=== PATIENT | female | born 1945 | race Caucasian/White ===

== ENCOUNTER 2020-03-17 11:27 | Emergency (ER) | payer MEDICARE, BC ==
--- NOTE | 2020-03-17 12:22 | CR ---
Pelvis and left hip: AP view of the pelvis was obtained as well as AP and frog-leg lateral views left hip. Joint spaces within both hips are maintained. Sacroiliac joints are normal. Degenerative change is noted within the visualized lower lumbar spine. No acute fracture or dislocation is seen. Impression: 1. Findings as noted above. 2. Nothing acute is appreciated on AP pelvis or on 2 view left hip exam. Diagnostic code #2 This report was dictated in MDT
--- NOTE | 2020-03-17 12:40 | EDM.PDOC ---
ED HPI GENERAL MEDICAL PROBLEM - General Chief Complaint: Trauma Stated Complaint: FALL (KNOCKED OVER BY A HORSE) Time Seen by Provider: 03/17/20 12:44 Source of Information: Reports: Patient, Family - History of Present Illness INITIAL COMMENTS - FREE TEXT/NARRATIVE: Patient is an unfortunate 74-year-old female who presents emergency department today with complaints of left hip pain. The patient reports she was in her normal state of health until last evening approximately 9 PM when she was standing next to a horse with a horse on her right side and the horse turned and knocked her over she fell onto her left side and has had pain and tenderness to her left hip ever since. Patient has a large hematoma to her left hip she complains of pain and tenderness to her left pelvis and she has ecchymosis to bilateral elbows she also has a small ecchymotic area to her left lower leg with proximal in the lateral aspect distal neurovascular is intact the leg is not shortened or rotated she is able to ambulate with some pain reports she did hit her head but did not suffer a loss of consciousness and is not taking any anticoagulant therapy at this time Left Hip Pain Score (Numeric/FACES): 10 - Related Data Allergies Allergy/AdvReac Type Severity Reaction Status Date / Time sulfamethoxazole Allergy Other Verified 08/30/18 14:02 [From Bactrim] trimethoprim [From Bactrim] Allergy Other Verified 08/30/18 14:02 Home Meds: Home Meds Chlorthalidone 12.5 mg PO DAILY 06/21/16 [History] Spironolactone [Aldactone] 25 mg PO DAILY 06/21/16 [History] Topiramate 25 mg PO DAILY 06/21/16 [History] busPIRone [Buspar] 10 mg PO BID 06/21/16 [History] Apixaban [Eliquis] 5 mg PO BID 08/21/18 [History] Ascorbic Acid [Vitamin C] 500 mg PO DAILY 08/30/18 [History] Calcium Carbonate [Calcium] 1,200 mg PO DAILY 08/30/18 [History] Cyanocobalamin (Vitamin B-12) [Vitamin B-12] 1,000 mcg PO DAILY 08/30/18 [History] Furosemide [Lasix] 40 mg PO DAILY PRN 08/30/18 [History] Levothyroxine [Synthroid] 88 mcg PO DAILY 08/30/18 [History] Metoprolol Tartrate 50 mg PO BID 08/30/18 [History] Multivitamin [Zoo Chews] 1 tab PO DAILY 08/30/18 [History] tiZANidine HCl [Zanaflex] 1 mg PO DAILY 08/30/18 [History] Acetaminophen/HYDROcodone [[place] 325-5 MG] 1 - 2 tab PO Q6H PRN #12 tablet 08/31/18 [Rx] Acetaminophen with Codeine [Tylenol with Codeine #3 Tablet] 1 each PO Q4H PRN #20 tablet 03/17/20 [Rx] Past Medical History HEENT History: Reports: Allergic Rhinitis, Impaired Vision Cardiovascular History: Reports: Blood Clots/VTE/DVT, CAD, High Cholesterol, Hypertension Other Cardiovascular History: edema, peripheral venous insufficiency Respiratory History: Reports: Other (See Below) Other Respiratory History: URI Gastrointestinal History: Reports: Diverticulosis, GERD Other Gastrointestinal History: elevated liver function tests, nausea Genitourinary History: Reports: None FLAKE DRIER History: Reports: Other (See Below) Other FLAKE DRIER History: fibrocystic breast Musculoskeletal History: Reports: Osteoarthritis, Other (See Below) Other Musculoskeletal History: wrist pain, myositis Neurological History: Reports: Headaches, Chronic, Migraines Psychiatric History: Reports: Anxiety Endocrine/Metabolic History: Reports: Hypothyroidism Hematologic History: Reports: Other (See Below) Other Hematologic History: hypokalemia Immunologic History: Reports: None Oncologic (Cancer) History: Reports: Breast Dermatologic History: Reports: Other (See Below) Other Dermatologic History: scalp hematoma, lumpectomy - Past Surgical History HEENT Surgical History: Reports: Cataract Surgery, Oral Surgery Cardiovascular Surgical History: Reports: Coronary Artery Stent, Other (See Below) Respiratory Surgical History: Reports: None GI Surgical History: Reports: Appendectomy, Colonoscopy, Lysis of Adhesions Female Surgical History: Reports: Hysterectomy, Oophorectomy, Other (See Below) Endocrine Surgical History: Reports: None Neurological Surgical History: Reports: None Oncologic Surgical History: Reports: Lumpectomy Social & Family History - Tobacco Use Smoking Status *Q: Never Smoker - Caffeine Use Caffeine Use: Reports: Coffee, Soda - Recreational Drug Use Recreational Drug Use: No - Living Situation & Occupation Living situation: Reports: , with Spouse, with Family (Granddaughter) Occupation: Retired Review of Systems - Review of Systems Review Of Systems: See Below Constitutional: Denies: Chills, Fever Musculoskeletal: Reports: Joint Pain Neurological: Reports: Difficulty Walking (Secondary to pain). Denies: Confusion, Dizziness, Headache, Change in Speech, Gait Disturbance ED EXAM, GENERAL - Physical Exam Exam: See Below Exam Limited By: No Limitations General Appearance: Alert, WD/WN, Mild Distress Nose: Normal Inspection, Normal Mucosa, No Blood Head: Atraumatic, Normocephalic Neck: Normal Inspection, Supple, Non-Tender, Full Range of Motion, Other (No cervical spine tenderness) Respiratory/Chest: No Respiratory Distress, Lungs Clear, Normal Breath Sounds, No Accessory Muscle Use, Chest Non-Tender Cardiovascular: Normal Peripheral Pulses, Regular Rate, Rhythm, No Edema, No Gallop, No JVD, No Murmur, No Rub GI/Abdominal: Normal Bowel Sounds, Soft, Non-Tender, No Organomegaly, No Distention, No Abnormal Bruit, No Mass Extremities: Other (Patient has a 6 x 6 cm area of hematoma to her left lateral hip, patient has moderate tenderness to her left pelvis, she also has 2 x 4 area of ecchymosis to the proximal left lower extremity lateral aspect distal neurovascular is intact, patient does have pain with ambulation but is able to ambulate leg is not shortened nor is it rotated patient has 3+ pedal edema to her right ankle, the patient reports this is normal lymphedema for her) Neurological: Alert, Oriented Skin Exam: Warm, Dry Course - Vital Signs Text/Narrative:: Head CT "impression: #1 mild senescent change. Other benign findings as noted above. #2 nothing acute is appreciated on noncontrast head CT exam." Last Recorded V/S: Last Vital Signs Temp 97.6 F 03/17/20 11:53 Pulse 56 L 03/17/20 11:53 Resp 20 03/17/20 11:53 BP 142/74 H 03/17/20 11:53 Pulse Ox 100 03/17/20 11:53 - Radiology Interpretation Free Text/Narrative:: AP pelvis interpreted by me left pubic symphysis fracture, otherwise NAD - Re-Assessments/Exams Free Text/Narrative Re-Assessment/Exam: 03/17/20 12:45 Of note, the care on this trauma patient was directed by Dr. Bull Departure - Departure Time of Disposition: 12:59 Disposition: Home, Self-Care 01 Clinical Impression: Pelvic fracture Qualifiers: Encounter type: initial encounter Pelvic bone location: pubis Sublocation of pubis: other portion of pubis Fracture type: closed Laterality: left Qualified Code(s): S32.592A - Other specified fracture of left pubis, initial encounter for closed fracture Contusion of left hip Qualifiers: Encounter type: initial encounter Qualified Code(s): S70.02XA - Contusion of left hip, initial encounter Head contusion Qualifiers: Encounter type: initial encounter Contusion of head detail: other part of head Qualified Code(s): S00.83XA - Contusion of other part of head, initial encounter Contusion of left leg Qualifiers: Encounter type: initial encounter Qualified Code(s): S80.12XA - Contusion of left lower leg, initial encounter - Discharge Information *PRESCRIPTION DRUG MONITORING PROGRAM REVIEWED*: Yes *COPY OF PRESCRIPTION DRUG MONITORING REPORT IN PATIENT MAXIMILIANO: No Prescriptions: Acetaminophen with Codeine [Tylenol with Codeine #3 Tablet] 1 each PO Q4H PRN #20 tablet PRN Reason: Pain Referrals: Janet Vu NP [Primary Care Provider] - Yogesh Young MD [Physician] - Forms: ED Department Discharge Additional Instructions: Home, rest, use your walker to assist with ambulation, return as needed for any worsening condition Sepsis Event Note (ED) - Evaluation Sepsis Screening Result: No Definite Risk - Focused Exam Vital Signs: Vital Signs Temp Pulse Resp BP Pulse Ox 03/17/20 11:53 97.6 F 56 L 20 142/74 H 100
--- NOTE | 2020-03-17 12:48 | CT ---
Head CT Technique: Multiple axial sections through the brain were obtained. Intravenous contrast was not utilized. Comparison: No prior intracranial imaging is available. Findings: Ventricles along with basal cisterns and sulci over the convexities are within normal limits for the patient's age. CSF structure is noted within the anterior right temporal region most likely due to small arachnoid cyst measuring 3.5 cm. Mild areas of diminished density are noted within the periventricular and subcortical white matter compatible with small vessel ischemic demyelination change. No other abnormal parenchymal densities are seen. No evidence of intracranial hemorrhage. No midline shift or mass-effect is seen. Visualized paranasal sinuses and mastoid sinuses show nothing acute. No acute calvarial finding is seen. Impression: 1. Mild senescent change. Other benign findings as noted above. 2. Nothing acute is appreciated on noncontrast head CT exam. Diagnostic code #2 This report was dictated in MDT
[2020-03-17 17:02] VITALS: BP 140/70; PULSE 62
== END 2020-03-17 13:43 | disposition home or self-care (01) ==
LOC: JD.ED 11:27
DX: S32.592A Other specified fracture of left pubis, initial encounter for closed fracture (principal); S00.83XA Contusion of other part of head, initial encounter; S70.02XA Contusion of left hip, initial encounter; S80.12XA Contusion of left lower leg, initial encounter; I10 Essential (primary) hypertension; E78.00 Pure hypercholesterolemia, unspecified; E03.9 Hypothyroidism, unspecified; F41.9 Anxiety disorder, unspecified; Z88.2 Allergy status to sulfonamides; Z88.1 Allergy status to other antibiotic agents; Z79.899 Other long term (current) drug therapy; V80.010A Animal-rider injured by fall from or being thrown from horse in noncollision accident, initial encounter
CPT/HCPCS: 70450; 70450-26; 73502-26-LT; 73502-LT; 99284-25

== ENCOUNTER 2023-07-07 09:39 | Day surgery (SDC) | payer MEDICARE, BC ==
[~2023-07-07 09:39] MED LIST: Lactated Ringers 1,000 ML IV SCH; Sodium Chloride 0.9% 10 ML Syringe FLUSH PRN; Sodium Chloride 0.9% 10 ML Syringe FLUSH SCH
[2023-07-07] MEDS ORDERED: fentaNYL 100 MCG/2 ML SDV ONE ×2 (10:23→10:49)
[2023-07-07] MEDS ORDERED: Propofol 200 MG/20 ML SDV ONE ×3 (10:23→11:32)
[2023-07-07] MEDS ORDERED: ePHEDrine 50 MG/ML SDV ONE (11:19)
[2023-07-07] MEDS ORDERED: Lidocaine 1% 30 ML SDV ONE (11:19)
[2023-07-07] MEDS ORDERED: Bupivacaine 0.5% 30 ML SDV ONE (11:19)
[2023-07-07] MEDS ORDERED: EPINEPHrine 1 MG/ML SDV ONE (11:19)
[2023-07-07] MEDS ORDERED: ceFAZolin 2 GM Vial ONE (12:00)
[2023-07-07] MEDS ORDERED: Lidocaine 1% with EPINEPHrine 1:100,000 20 ML MDV ONE (12:03)
[2023-07-07] MEDS ORDERED: Acetaminophen/HYDROcodone 325-5 MG Tab PO PRN (13:25)
[2023-07-07 15:04] VITALS: BP 120/70; PULSE 72
== END 2023-07-07 14:50 | disposition home or self-care (01) ==
LOC: JD.SDS 09:39
PROVIDERS: ATTEND Surgery
DX: K29.50 Unspecified chronic gastritis without bleeding (principal); K21.00 Gastro-esophageal reflux disease with esophagitis, without bleeding; K44.9 Diaphragmatic hernia without obstruction or gangrene; E03.9 Hypothyroidism, unspecified; E78.5 Hyperlipidemia, unspecified; G47.00 Insomnia, unspecified; M79.81 Nontraumatic hematoma of soft tissue; M79.7 Fibromyalgia; Z79.2 Long term (current) use of antibiotics; Z79.1 Long term (current) use of non-steroidal anti-inflammatories (NSAID); Z79.890 Hormone replacement therapy; Z79.899 Other long term (current) drug therapy; Z90.49 Acquired absence of other specified parts of digestive tract; Z88.1 Allergy status to other antibiotic agents; Z88.8 Allergy status to other drugs, medicaments and biological substances; Z88.2 Allergy status to sulfonamides; Z87.2 Personal history of diseases of the skin and subcutaneous tissue
CPT/HCPCS: 11043; 11046; 43239; 88305; 88342; A9270; J0171; J0690; J2704; J3010; J3490; J7120; 00731; 99100

== ENCOUNTER 2024-11-09 07:15 | Day surgery (SDC) | payer MEDICARE, BC ==
[~2024-11-09 07:15] MED LIST changes: -Lactated Ringers 1,000 ML IV SCH
[2024-11-09] MEDS: Lactated Ringers 1,000 ML IV SCH (07:30)
[2024-11-09] MEDS ORDERED: Propofol 200 MG/20 ML SDV ONE (07:43)
[2024-11-09] MEDS ORDERED: fentaNYL 100 MCG/2 ML SDV ONE (07:44)
[2024-11-09] MEDS: Bupivacaine 0.25% 10 ML SDV ONE (08:37)
[2024-11-09] MEDS: Lidocaine 1% 10 ML MDV ONE (08:37)
[2024-11-09] MEDS ORDERED: Acetaminophen 325 MG Tab PO ONE (09:00)
[2024-11-09 09:46] VITALS: BP 120/62; PULSE 58
== END 2024-11-09 09:42 | disposition home or self-care (01) ==
LOC: JD.SDS 07:15
PROVIDERS: ATTEND Orthopaedic Surgery
DX: M65.841 Other synovitis and tenosynovitis, right hand (principal); I10 Essential (primary) hypertension; I25.10 Atherosclerotic heart disease of native coronary artery without angina pectoris; E03.9 Hypothyroidism, unspecified; E78.00 Pure hypercholesterolemia, unspecified; I89.0 Lymphedema, not elsewhere classified; E87.6 Hypokalemia; Z79.890 Hormone replacement therapy; Z79.899 Other long term (current) drug therapy; Z88.2 Allergy status to sulfonamides; Z88.6 Allergy status to analgesic agent; Z91.010 Allergy to peanuts
CPT/HCPCS: 26055; J0665; J2003; J2704; J3010; J7120; 01810; 99100

== ENCOUNTER 2025-01-29 11:26 | Emergency (ER) | payer MEDICARE, BC ==
[2025-01-29 11:39] VITALS: PULSE 68
[2025-01-29 12:24] LABS: BASOPHILS PERCENT AUTO 0.5 % (0.0-1.0); EOSINOPHILS ABSOLUTE AUTO 0.1 K/mm3 (0.0-0.4); EOSINOPHILS PERCENT AUTO 1.5 % (0.0-6.0); HEMATOCRIT 40.2 % (37.0-47.0); HEMOGLOBIN 13.5 gm/dl (12.0-16.0); IMMATURE GRAN ABSOLUTE AUTO 0.06 K/mm3 (0.00-0.05); LYMPHOCYTES PERCENT AUTO 16.9 % (24.0-44.0); MEAN CORPUSCULAR HEMOGLOBIN 32.3 pg (28.0-32.0); MEAN CORPUSCULAR HGB CONC 33.6 g/dl (32.0-36.0); MEAN CORPUSCULAR VOLUME 96.2 fl (83.0-99.0); MEAN PLATELET VOLUME 8.8 fl (9.4-12.3); MONOCYTES ABSOLUTE AUTO 0.6 K/mm3 (0.0-0.8); MONOCYTES PERCENT AUTO 9.8 % (0.0-8.0); NEUTROPHILS ABSOLUTE AUTO 4.2 K/mm3 (1.8-7.7); NEUTROPHILS PERCENT AUTO 70.3 % (41.0-71.0); PLATELET COUNT,PLT 213 K/mm3 (150-400); RED BLOOD CELL COUNT 4.18 M/mm3 (4.10-5.30); WHITE BLOOD CELL COUNT,WBC 5.92 K/mm3 (3.9-11.3)
[2025-01-29 12:28] VITALS: BP 136/71
[2025-01-29 12:51] LABS: ALBUMIN 3.4 g/dl (3.4-5.0); BILIRUBIN TOTAL 0.5 mg/dL (0.2-1.0); CALCIUM 9.7 mg/dL (8.5-10.1); CREATININE 1.2 mg/dL (0.55-1.02); EST CRCL DRUG DOSING (CG) 35.33 mL/min; PROTEIN TOTAL,TP 6.8 g/dl (6.4-8.2)
[2025-01-29 12:56] LABS: TSH 6.08 uIU/mL (0.358-3.74)
[2025-01-29 13:13] LABS: T4 FREE 1.22 ng/dL (0.76-1.46)
[2025-01-29] MEDS: Iopamidol 755 Mg/ML 100 ML Bottle IVPUSH ONE (13:40)
[2025-01-29] MEDS: Sodium Chloride 0.9% 10 ML Syringe FLUSH PRN (13:40)
[2025-01-29] MEDS: Sodium Chloride 0.9% 100 ML IV SCH (13:40)
[2025-01-29] MEDS: Sodium Chloride 0.9% 1,000 ML IV STA (13:55)
[2025-01-29] MEDS: Sodium Chloride 0.9% 10 ML Syringe FLUSH ONE (14:01)
[2025-01-29 14:08] LABS: APPEARANCE,URINE CLEAR (Clear); BILIRUBIN,URINE NEGATIVE (Negative); COLOR,URINE YELLOW (Yellow); GLUCOSE,URINE NEGATIVE (Negative); KETONES,URINE NEGATIVE (Negative); LEUKOCYTE ESTERASE,URINE NEGATIVE (Negative); NITRITE,URINE NEGATIVE (Negative); OCCULT BLOOD,URINE NEGATIVE (Negative); PH,URINE 7.5 (5.0-8.0); PROTEIN,URINE NEGATIVE (Negative); UROBILINOGEN,URINE 0.2 (0.2-1.0)
[2025-01-29] MEDS: Apixaban 5 MG Tab PO ONE (15:51)
== END 2025-01-29 15:54 | disposition home or self-care (01) ==
LOC: JD.ED 11:26
DX: R07.2 Precordial pain (principal); I82.401 Acute embolism and thrombosis of unspecified deep veins of right lower extremity; E03.9 Hypothyroidism, unspecified; I10 Essential (primary) hypertension; Z88.2 Allergy status to sulfonamides; Z88.8 Allergy status to other drugs, medicaments and biological substances; Z91.010 Allergy to peanuts; Z79.890 Hormone replacement therapy; Z79.899 Other long term (current) drug therapy; Z90.49 Acquired absence of other specified parts of digestive tract; Z90.710 Acquired absence of both cervix and uterus
CPT/HCPCS: 36415; 71046; 71275; 80053; 81003; 84439; 84443; 84484; 85025; 85379; 93005; 93970; 96360; 96361; 99285; A9270; J7030; Q9967; 93010; 99284